=== PATIENT | female | born 1985 | race African-American/Black ===

== ENCOUNTER 2018-04-07 05:05 | Inpatient (IN) | payer BC ==
[2018-04-07] MEDS ORDERED: Butorphanol 1 MG/ML SDV IVPUSH PRN (08:07)
[2018-04-07] MEDS ORDERED: Lidocaine 1% 50 ML MDV INJECT PRN (08:07)
[2018-04-07] MEDS ORDERED: Sodium Chloride 0.9% 10 ML Syringe FLUSH PRN (08:07)
[2018-04-07] MEDS ORDERED: Nalbuphine 10 MG/1 ML Vial IVPUSH PRN (08:07)
[2018-04-07] MEDS ORDERED: Misoprostol 200 MCG Tab PO PRN (08:07)
[2018-04-07] MEDS ORDERED: Methylergonovine 0.2 MG/1 ML Amp IM PRN (08:07)
[2018-04-07] MEDS ORDERED: Tranexamic Acid 1,000 MG in Sodium Chloride 0.9% 100 ML IV PRN (08:07)
[2018-04-07] MEDS ORDERED: Sodium Chloride 0.9% 2.5 ML Syringe FLUSH PRN (08:07)
[2018-04-07] MEDS ORDERED: Carboprost Tromethamine 250 MCG/1 ML Amp IM PRN (08:07)
[2018-04-07] MEDS ORDERED: Ampicillin 2 GM in Sodium Chloride 0.9% 100 ML IV ONE (08:07)
[2018-04-07] MEDS ORDERED: Water For Irrigation,Sterile 1,000 ML Container IRR PRN (08:07)
[2018-04-07] MEDS ORDERED: Oxytocin/0.9 % Sodium Chloride 30 UNIT/500 ML BAG IV SCH ×2 (08:15→10:30)
[2018-04-07] MEDS: Lactated Ringers 1,000 ML IV SCH ×3 (08:50→16:23)
[2018-04-07] MEDS ORDERED: Terbutaline 1 MG/ML SDV SUBCUT PRN (10:24)
--- NOTE | 2018-04-07 11:14 | PCM.SN ---
- Free Text/Narrative Note: Patient very concerned about epidural. She states that her last pregnancies progressed very fast, and just "mentally worked through it". She describes this as different, meaning that it is progressing slower than the others. We discussed in great detail, the risks of the epidural, and the procedure. She is aware that a needle will be placed in her back and that the needle will be removed, and the catheter will remain. She seemed more receptive to the procedure once she realized that only an epidural catheter will remain in her back. I discussed potential challenges with epidural placement like scoliosis, and inability to remain still. She notes that she does not have scoliosis.
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
[2018-04-07] MEDS ORDERED: Lidocaine HCl/EPINEPHrine 5 ML IJ ONE (11:46)
[2018-04-07] MEDS: Ampicillin 1 GM in Sodium Chloride 0.9% 50 ML IV SCH ×2 (12:55→17:25)
[2018-04-07] MEDS ORDERED: Acetaminophen 500 MG Tab PO ONE (17:19)
[2018-04-07] MEDS ORDERED: Acetaminophen 500 MG Tab ONE (17:22)
[2018-04-07] MEDS ORDERED: Lanolin 100% Cream 7 GM Tube TOP PRN (19:15)
[2018-04-07] MEDS ORDERED: Docusate Sodium 100 MG Cap PO PRN (19:15)
[2018-04-07] MEDS ORDERED: Acetaminophen 500 MG Tab PO PRN ×2 (19:15)
[2018-04-07] MEDS ORDERED: Benzocaine/Menthol 20%-0.5% Spray 78 GM Cannister TOP PRN (19:15)
[2018-04-07] MEDS ORDERED: Aluminum Hydroxide/Magnesium Hydroxide/Simethicone Susp 30 ML Cup PO PRN (19:15)
[2018-04-07] MEDS ORDERED: oxyCODONE 5 MG Tab PO PRN (19:15)
[2018-04-07] MEDS ORDERED: Ibuprofen 800 MG Tab PO PRN (19:15)
[2018-04-07] MEDS ORDERED: Witch Hazel Medicated Pads 40/Jar TOP PRN (19:15)
[2018-04-07] MEDS ORDERED: Ondansetron 4 MG/2 ML SDV IVPUSH PRN (19:15)
[2018-04-07] MEDS ORDERED: Ibuprofen 400 MG Tab PO PRN (19:15)
[2018-04-07] MEDS ORDERED: Bisacodyl 10 MG Supp RECTAL PRN (19:15)
--- NOTE | 2018-04-07 19:23 | PCM.OPNOTE ---
- General Post-Op/Procedure Note Date of Surgery/Procedure: 04/07/18 Operative Procedure(s): /IP Findings: Viable male APGARs 9, 9 weight 2720 gm. Spontaneous delivery intact placenta with 3V cord Pre Op Diagnosis: 38 week IUP. Preeclampsia. GBBS + Post-Op Diagnosis: Same Anesthesia Technique: Epidural Primary Surgeon: Kadi Scott EBL in mLs: 300 Complications: None known Condition: Stable Free Text/Narrative:: Dictation [id number]
--- NOTE | 2018-04-07 20:06 | OR ---
SURGEON: Kadi Scott M.D. DATE OF PROCEDURE: 04/07/2018 PREOPERATIVE DIAGNOSES: 1. 38 weeks' intrauterine . 2. Preeclampsia. 3. Group B strep positive. POSTOPERATIVE DIAGNOSES: 1. 38 weeks' intrauterine . 2. Preeclampsia. 3. Group B strep positive. PROCEDURE: Spontaneous vaginal delivery. Intact perineum. ANESTHESIA: Epidural. ESTIMATED BLOOD LOSS: 300 mL. COMPLICATIONS: None. FINDINGS: Viable male. scores were 9 at 1 minute and 9 at 5 minutes. Weight is 2720 g. Spontaneous delivery, intact placenta, 3-vessel cord. DISPOSITION: to nursery, mom to magnesium recovery, stable. PROCEDURE IN DETAIL: This is a 33-year-old primigravida, at 38 weeks' gestational age who presents with severe preeclampsia, was admitted to Labor and Delivery and induced while on magnesium prophylaxis. The patient was managed by Dr. Ruffin and Dr. Montejo. I assumed care at approximately 5:00 p.m., on evening of 04/07/2018. At that time, the patient was found to be 9 cm. Clear fluid had been noted. heart tones are in the 140s with minimal variability, occasional deceleration. The patient progressed to complete +2 by 6:30 p.m., began pushing efforts by 7:00 p.m. She was at +3 station, was called for delivery. Upon my arrival, the patient was placed in modified dorsal lithotomy position, was prepped and draped in usual aseptic manner. Continued with pushing efforts, pushed readily and with next few contractions, able to deliver infant's head atraumatically and spontaneously, followed by anterior shoulder, posterior shoulder, and remainder of body without difficulty. The infant's oropharynx and nares bulb suctioned. Cord was clamped x2 and cut. was vigorous and crying. was handed off to his mother with attending nursing staff side. Cord arterial, cord venous, cord blood sampling was obtained. Light pressure was applied. The placenta was delivered spontaneously intact. Vigorous fundal uterine massage was then applied while 30 units of Pitocin was delivered in 500 mL of IV fluid. Upon inspection of cervix, vaginal sidewalls, and perineum, these were found to be intact. Uterus remained firm. Hemostasis evident. Sponge count was correct. The patient remained in LDRP and magnesium prophylaxis. Infant to nursery. SOLBSAR / MODL /[id number]
--- NOTE | 2018-04-07 20:14 | PCM.OPNOTE ---
- General Post-Op/Procedure Note Date of Surgery/Procedure: 04/07/18 Operative Procedure(s): /IP Findings: Viable male APGARs 8, 9 weight pending. Spontaneous delivery intact placenta with 3V cord Pre Op Diagnosis: 39/4 week IUP. Induction for abnormal heart tones Post-Op Diagnosis: Same Anesthesia Technique: Epidural Primary Surgeon: Kadi Scott EBL in mLs: 300 Complications: none known Condition: Stable Free Text/Narrative:: Dictation [id number]
--- NOTE | 2018-04-08 03:03 | OR ---
SURGEON: Kadi Scott M.D. DATE OF PROCEDURE: PREOPERTIVE DIAGNOSES: 1. A 39- and 4-week intrauterine . 2. Abnormal heart tones. POSTOPERATIVE DIAGNOSES: 1. A 39- and 4-week intrauterine . 2. Abnormal heart tones. PROCEDURE: Spontaneous vaginal delivery, intact perineum. ESTIMATED BLOOD LOSS: 300 mL. ANESTHESIA: Epidural. FINDINGS: Term male, scores eight at 1 minute, nine at 5 minutes. Weight is pending. Spontaneous delivery, intact placenta, 3-vessel cord. COMPLICATIONS: None. DISPOSITION: Infant to nursery, mom in LDRP, stable. PROCEDURE IN DETAIL: Isela is a 33-year-old G4, P3 at 39 and 4 weeks gestational age, who presents this morning with irregular contractions, but during observation was noted to have some intermittent variable deceleration with late component. Therefore, given these findings, she was admitted. Routine labs were drawn, IV hydration was initiated. She was repositioned with oxygen supplementation. The heart tones stabilized in the 140s with minimal variability. She was found to be 2-3 cm, 50% effaced, -3 station. The patient was initiated on Pitocin, contraction became more regular, became increasingly uncomfortable and underwent regional anesthesia in the form of epidural. She had spontaneous rupture of membranes with clear fluid. Shortly after 2:00 p.m., she was found to be 6-7 cm, 80% effaced, and a -2 station. She continued to progress through the afternoon hours and shortly before 5:00 p.m., she had a slightly elevated temperature of 100.8 and baseline heart tones were at 160s, 170s. She had intermittent variables prior to this. With the tachycardia, the patient underwent IV fluid bolus and received 1 g of Tylenol, was repositioned with oxygen supplementation. At that time, the patient was found to be 8 cm, within half hour progressed to 9 cm and then to 9.5 cm, was able to continue to reposition her side to side with oxygen supplementation, and for the most part, heart tones remained in the 150s to 160s. However, there were variables noted with the contractions. Pitocin continued at 10 milliunits per minute. With these efforts, the patient was able to progress to complete, began pushing efforts, pushed readily to a +3 station. The patient was placed in modified dorsal lithotomy position, was prepped and draped in the usual aseptic manner. Continued with pushing efforts, with the next two contractions, able to deliver infant's head atraumatically, spontaneously, followed by anterior shoulder, posterior shoulder, and remainder of the body. The 's oropharynx and nares bulb suctioned. Cord was clamped x2. Infant was crying and vigorous, handed off to his mother with attending nursing staff side. Cord arterial, cord venous, cord blood samples obtained after clamping the cord x2 and cutting it. Light pressure was applied while the placenta was delivered spontaneously intact. Vigorous fundal uterine massage was then applied while 30 units of Pitocin delivered in 500 mL of IV fluid. Upon inspection of cervix, vaginal sidewalls, and perineum, these were found to be intact. Uterus remained firm. Hemostasis evident. Sponge and instrument counts were correct. The patient will remain in LDRP, infant to nursery. MICHAEL / MELE /[id number]
--- NOTE | 2018-04-08 07:33 | PCM48HPAN ---
Post Anesthesia Note - EVALUATION WITHIN 48HRS OF ANESTHETIC Vital Signs in Normal Range: Yes Patient Participated in Evaluation: Yes Respiratory Function Stable: Yes Airway Patent: Yes Cardiovascular Function Stable: Yes Hydration Status Stable: Yes Pain Control Satisfactory: Yes Nausea and Vomiting Control Satisfactory: Yes Mental Status Recovered: Yes Resp Rate: 17 Temperature: 37.9 C
--- NOTE | 2018-04-08 17:59 | PCM.PNPP ---
- General Info Date of Service: 04/08/18 Functional Status: Reports: Pain Controlled, Tolerating Diet, Ambulating, Urinating - Review of Systems General: Reports: No Symptoms HEENT: Reports: No Symptoms Pulmonary: Reports: No Symptoms Cardiovascular: Reports: No Symptoms Gastrointestinal: Reports: No Symptoms Genitourinary: Reports: No Symptoms Musculoskeletal: Reports: No Symptoms Skin: Reports: No Symptoms Neurological: Reports: No Symptoms Psychiatric: Reports: No Symptoms - General Info Date of Service: 04/08/18 - Patient Data Vital Signs - Most Recent: Last Vital Signs Temp 36.4 C 04/08/18 08:00 Pulse 108 H 04/08/18 08:00 Resp 16 04/08/18 08:00 BP 114/61 04/08/18 08:00 Pulse Ox 95 04/08/18 08:00 Weight - Most Recent: 97.976 kg Lab Results - Last 24 Hours: Laboratory Results - last 24 hr 04/07/18 04/07/18 04/08/18 Range/Units 19:56 19:56 06:00 Hgb 10.7 L (12.0-16.0) g/dL Hct 33.4 L (36.0-46.0) % Cord ABG pH 7.299 (7.18-7.38) Cord ABG Base Excess -7 (-10--2) Cord VBG pH 7.290 (7.25-7.45) Cord VBG Base Excess -7 (-10--2) Med Orders - Current: Current Medications Acetaminophen (Tylenol Extra Strength) 500 mg PO Q4H PRN PRN Reason: Pain Acetaminophen (Tylenol Extra Strength) 1,000 mg PO Q4H PRN PRN Reason: Pain Al Hydroxide/Mg Hydroxide (Mag-Al Plus) 30 ml PO Q8H PRN PRN Reason: Heartburn Benzocaine/Menthol (Dermoplast Pain Relief 20%-0.5% [place]) 78 gm TOP ASDIRECTED PRN PRN Reason: Perineal Comfort Measure Bisacodyl (Dulcolax) 10 mg RECTAL ONETIME PRN PRN Reason: Constipation Carboprost Tromethamine (Hemabate Ds) 250 mcg IM ASDIRECTED PRN PRN Reason: Post Hemorrhage Docusate Sodium (Colace) 100 mg PO BID PRN PRN Reason: Constipation Emollient Ointment (Lansinoh Hpa) 0 gm TOP ASDIRECTED PRN PRN Reason: Sore Nipples Tranexamic Acid 1,000 mg/ (Sodium Chloride) 110 mls @ 660 mls/hr IV ONETIME PRN PRN Reason: Bleeding Lactated Ringer's (Ringers, Lactated) 1,000 mls @ 150 mls/hr IV ASDIRECTED PAMELA Last Admin: 04/07/18 16:23 Dose: 150 mls/hr Oxytocin/Sodium Chloride (Oxytocin 30 Unit/500 Ml-Ns) 30 unit in 500 mls @ 999 mls/hr IV TITRATE PAMELA Oxytocin/Sodium Chloride (Oxytocin 30 Unit/500 Ml-Ns) 30 unit in 500 mls @ 2 mls/hr IV TITRATE PAMELA; Protocol Last Titration: 04/07/18 19:56 Dose: 999 munits/min, 999 mls/hr Ibuprofen (Motrin) 400 mg PO Q4H PRN PRN Reason: Pain Ibuprofen (Motrin) 800 mg PO Q6H PRN PRN Reason: Pain Methylergonovine Maleate (Methergine) 0.2 mg IM ASDIRECTED PRN PRN Reason: Post Hemorrhage Nalbuphine HCl (Nubain) 10 mg IVPUSH Q1H PRN PRN Reason: Pain (severe 7-10) Ondansetron HCl (Zofran) 4 mg IVPUSH Q6H PRN PRN Reason: Nausea/Vomiting Oxycodone HCl (Oxycodone) 5 mg PO Q2H PRN PRN Reason: Pain Sodium Chloride (Saline Flush) 10 ml FLUSH ASDIRECTED PRN PRN Reason: Keep Vein Open Sodium Chloride (Saline Flush) 2.5 ml FLUSH ASDIRECTED PRN PRN Reason: Keep Vein Open Sterile Water (Sterile Water For Irrigation) 1,000 ml IRR ASDIRECTED PRN PRN Reason: delivery Witch [place] (Tucks) 1 pad TOP ASDIRECTED PRN PRN Reason: comfort care Discontinued Medications Acetaminophen (Tylenol Extra Strength) 1,000 mg PO ONETIME ONE Stop: 04/07/18 17:20 Last Admin: 04/07/18 17:30 Dose: 1,000 mg Acetaminophen (Tylenol Extra Strength) Confirm Administered Dose 1,000 mg .ROUTE .STK-MED ONE Stop: 04/07/18 17:23 Last Admin: 04/08/18 01:03 Dose: Not Given Butorphanol Tartrate (Stadol) 1 mg IVPUSH Q1H PRN PRN Reason: Pain Ampicillin Sodium 2 gm/ Sodium (Chloride) 100 mls @ 200 mls/hr IV ONETIME ONE Stop: 04/07/18 08:36 Last Admin: 04/07/18 09:05 Dose: 200 mls/hr Ampicillin Sodium 1 gm/ Sodium (Chloride) 50 mls @ 100 mls/hr IV Q4H PAMELA Last Admin: 04/07/18 17:25 Dose: 100 mls/hr Fentanyl/Bupivacaine HCl (Spvmhdbf-Qwthn-Fe 2 Mcg/Ml-0.125%) Confirm Administered Dose 100 mls @ as directed .ROUTE .STK-MED ONE Stop: 04/07/18 11:47 Last Admin: 04/08/18 01:03 Dose: Not Given Fentanyl/Bupivacaine HCl (Xbunuvuw-Onlju-Yd 2 Mcg/Ml-0.125%) Confirm Administered Dose 100 mls @ as directed .ROUTE .STK-MED ONE Stop: 04/07/18 17:19 Last Admin: 04/08/18 01:03 Dose: Not Given Lidocaine HCl (Xylocaine 1%) 50 ml INJECT ONETIME PRN PRN Reason: Laceration repair Lidocaine/Epinephrine (Lidocaine 1.5%-Epi 1:200,000) Confirm Administered Dose 5 ml IJ .STK-MED ONE Stop: 04/07/18 11:47 Last Admin: 04/08/18 01:03 Dose: Not Given Misoprostol (Cytotec) 200 mcg PO ONETIME PRN PRN Reason: Post Hemorrhage Terbutaline Sulfate (Brethine) 0.25 mg SUBCUT ASDIRECTED PRN PRN Reason: Tacysystole - Infant Interaction Support Person: Friend - Recovery Exam Fundal Tone: Firm Fundal Level: 1 Fingerbreadths Below Umbilicus Fundal Placement: Midline Lochia Amount: Scant Lochia Color: Rubra/Red Perineum Description: Intact, Minimal Bruising/Swelling Episiotomy/Laceration: None Bladder Status: Voiding Urinary Elimination: Voided - Exam General: Alert HEENT: Pupils Equal Neck: Supple Lungs: Clear to Auscultation Cardiovascular: Regular Rate, Regular Rhythm GI/Abdominal Exam: Normal Bowel Sounds Extremities: Normal Inspection Neurological: No New Focal Deficit - Problem List & Annotations (1) Vaginal delivery SNOMED Code(s): 913189062 Code(s): O80 - ENCOUNTER FOR FULL-TERM UNCOMPLICATED DELIVERY Status: Acute Current Visit: Yes - Problem List Review Problem List Initiated/Reviewed/Updated: Yes - Assessment Assessment:: 33 yo P4 s/p stable , , normal lochia - Plan Plan:: Discharge home today
== END 2018-04-08 22:50 | disposition home or self-care (01) | DRG 560 ==
LOC: MW.OBCHECK 05:05 → MW.OB 05:07 → MW.OBCHECK 08:07 → MW.OB 08:07 → OBSVTOIN 19:55
PROVIDERS: ADMIT Obstetrics & Gynecology; ATTEND Obstetrics & Gynecology
PROC: 10E0XZZ Delivery of Products of Conception, External Approach (ICD-10-PCS; principal; 2018-04-07)
PROC: 10H07YZ Insertion of Other Device into Products of Conception, Via Natural or Artificial Opening (ICD-10-PCS; principal; 2018-04-07)
PROC: 6A550ZT Pheresis of Cord Blood Stem Cells, Single (ICD-10-PCS; principal; 2018-04-07)
PROC: 00HU33Z Insertion of Infusion Device into Spinal Canal, Percutaneous Approach (ICD-10-PCS; 2018-04-07)
PROC: 3E0R3BZ Introduction of Anesthetic Agent into Spinal Canal, Percutaneous Approach (ICD-10-PCS; 2018-04-07)
DX: O99.824 Streptococcus B carrier state complicating childbirth (principal); O99.344 Other mental disorders complicating childbirth; F33.9 Major depressive disorder, recurrent, unspecified; O99.214 Obesity complicating childbirth; E66.9 Obesity, unspecified; Z3A.39 39 weeks gestation of pregnancy; Z37.0 Single live birth; O99.02 Anemia complicating childbirth; D64.9 Anemia, unspecified; O99.62 Diseases of the digestive system complicating childbirth; K21.9 Gastro-esophageal reflux disease without esophagitis; O76 Abnormality in fetal heart rate and rhythm complicating labor and delivery; Z79.899 Other long term (current) drug therapy
CPT/HCPCS: 36415; 51702; 59025; 59409; 81003; 82803; 85014; 85018; 85027; 86850; 86900; 86901; A9270-GY; J0290; J2590; J7030; J7050; J7120

== ENCOUNTER 2019-02-21 16:24 | Emergency (ER) | payer BC ==
--- NOTE | 2019-02-21 17:54 | EDM.PDOC ---
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 Denies pain, discharge, or further symptoms. ROS with no recent constitutional symptoms. Exam HR 96, RR 16, BP 135/82, T 36.4C, SaO2 100% on room air. Gen: Pleasant, nontoxic-appearing, resting comfortably. HEENT: NC, AT, PEERL, EOMI. Resp: Unlabored respirations with a normal work of breathing. Card: Extremities warm and well perfused. GI: Non-distended. : no suprapubic tenderness to palpation. MSK: No visible deformities, strength and tone without visually appreciable deficit. Neuro: alert and oriented 3, no facial asymmetry, vision and hearing WNL. Heme/Lymph: Deferred Skin: Normal color with no visible lesions (other than noted above). Psych: Mood and affect appropriate. MDM Previous chart, nursing note, and vitals reviewed. A: 33-year-old female 10 months with an IUD presents requesting repeat testing after having to positive urine test at home, patient experienced responding approximately 10 days ago, prior to that her last period was as one month ago. DDx & Evaluation: patient with positive urine test, and the absence of further symptoms no further testing is presently warranted. 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 Return to care precautions provided. Impression: positive test. - Related Data Allergies Allergy/AdvReac Type Severity Reaction Status Date / Time No Known Allergies Allergy Verified 02/21/19 17:10 Home Meds: Home Meds . 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 Endocrine/Metabolic History: Reports: Obesity/BMI 30+ Hematologic History: Reports: None Immunologic History: Reports: None Oncologic (Cancer) History: Reports: None Dermatologic History: Reports: None - Infectious Disease History Infectious Disease History: Reports: None - Past Surgical History GI Surgical History: Reports: None Endocrine Surgical History: Reports: None Social & Family History - Family History OBGYN: Reports: Oncologic: Reports: None - Tobacco Use Smoking Status *Q: Never Smoker - Caffeine Use Caffeine Use: Reports: None Other Caffeine Use: a cup occasionally - Recreational Drug Use Recreational Drug Use: No ED ROS GENERAL - Review of Systems Review Of Systems: See Below ED EXAM, GENERAL - Physical Exam Exam: See Below Course - Vital Signs Last Recorded V/S: Last Vital Signs Temp 36.7 C 02/21/19 17:41 Pulse 97 02/21/19 17:41 Resp 16 02/21/19 17:41 BP 134/93 H 02/21/19 17:41 Pulse Ox 99 02/21/19 17:41 - Orders/Labs/Meds Labs: Laboratory Tests 02/21/19 02/21/19 Range/Units 16:54 16:54 Urine HCG, Qual POSITIVE (NEGATIVE) Urine Opiates Screen NEGATIVE (NEGATIVE) Ur Oxycodone Screen NEGATIVE (NEGATIVE) Urine Methadone Screen NEGATIVE (NEGATIVE) Ur Barbiturates Screen NEGATIVE (NEGATIVE) Ur Phencyclidine Scrn NEGATIVE (NEGATIVE) Ur Amphetamine Screen NEGATIVE (NEGATIVE) U Methamphetamines Scrn NEGATIVE (NEGATIVE) U Benzodiazepines Scrn NEGATIVE (NEGATIVE) U Cocaine Metab Screen NEGATIVE (NEGATIVE) U Marijuana (THC) Screen NEGATIVE (NEGATIVE) Departure - Departure Time of Disposition: 17:53 Disposition: Home, Self-Care 01 Clinical Impression: - Discharge Information Referrals: Swetha Olivares MD [Primary Care Provider] - Additional Instructions: You were in seen in the [facility] Emergency Department for evaluation of possible , you were found to be . Please follow-up on Friday by phone with an sheep farmer. Please contact any one of the 3 clinics listed below if you need to establish care. Please read and follow all of the instructions below. Please follow up with your primary care physician as needed. When calling for follow-up care, please make the office aware that this follow-up is from your recent emergency room visit. If for any reason you are refused follow-up, please contact the [facility] Emergency Department at and asked to speak to the emergency department charge nurse. Your care today was limited to identifying and treating emergent medical problems only. Many people have subtle differences in their test results that require follow up with their outpatient physician(s) to correctly determine if this represents a normal variation or concerning abnormality with respect to your specific health. The care given to you today was limited to identifying and treating emergent medical problems - you need to request a copy of all of your medical records from today's visit and follow up with your outpatient physician(s) to review both today's visit and your overall health. If you have any new symptoms or if you are at all concerned about your health please return immediately to the emergency department. Prescriptions: If you are uninsured or have financial difficulties with filling your prescription(s), you may consider using a free pharmacy discount service such as [employer] ([employer]) or [employer] ([employer]). These services allow you to search for a medication on your phone (or computer) and obtain a coupon that usually has a significant discount from the list jerez at a pharmacy. Your physician as well as [facility] does not have a financial relationship with either of these services. You may also wish to speak with your physician to determine if lower cost prescriptions are possible. Obtaining primary care: 1. [facility] provides pediatrics (children), family medicine (children, adults, and some obstetrical care), and internal medicine (adults). Further specialty care is also available. Same day appointments are available. They may be contacted at [phone] and are open Friday through Friday 8 AM to [address] [facility] are located at [facility], [address] [place] [address]. 2. [facility] offers family medicine, internal medicine, [facility], and further specialty care. [facility] may be contacted at [phone]. [facility] is located at [address] [place], [address]. 3. [facility], , Friday through Friday 8 AM to 5 PM. [address] [place] [address]. 4. If you have health insurance, please also contact your insurer for a list of accepting providers under your policy, you may contact these providers for further health care. Occupational health: Work related injuries may consider following up with [facility], . Occupational health services are located at [address] [place] [address] and are open Friday through Friday from 7: 30 am to 5:00 pm. Eyecare: If you have an eye injury you should follow up with your hand mica plate layer or with [facility], at [phone] or [phone] , they are located at [address] [place] [address]. Sepsis Event Note - Evaluation Sepsis Screening Result: No Definite Risk - Focused Exam Vital Signs: Vital Signs Temp Pulse Resp BP Pulse Ox 02/21/19 17:41 36.7 C 97 16 134/93 H 99 02/21/19 17:11 36.4 C 96 16 135/82 100 Date Exam was Performed: 02/21/19 Time Exam was Performed: 17:53
== END 2019-02-21 17:57 | disposition home or self-care (01) ==
LOC: MW.ED 16:24
DX: Z32.01 Encounter for pregnancy test, result positive (principal); O99.211 Obesity complicating pregnancy, first trimester; E66.9 Obesity, unspecified
CPT/HCPCS: 80305-QW; 81025; 99282

== ENCOUNTER 2019-03-02 07:11 | Day surgery (SDC) | payer BC ==
[2019-03-02] MEDS ORDERED: Acetaminophen 325 MG Tab PO ONE (07:36)
--- NOTE | 2019-03-02 07:40 | EDM.PDOC ---
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 Patient had IUD removed yesterday in clinic after discovering she was on February 21. Patient was instructed to return to the emergency department if she develops severe cramping. Patient started developing severe cramping this morning which did not radiate and was constant. Patient denies any associated fevers, chills, nausea, vomiting, vaginal bleeding. In addition to that documented in the HPI above, the additional ROS was obtained : Constitutional: Denies fevers or chills Eyes: Denies vision changes ENMT: Denies sore throat CV: Denies chest pain Resp: Denies SOB GI: Denies vomiting or diarrhea : Denies painful urination MSK: Denies recent trauma Skin: Denies new rashes Neuro: Denies new numbness or tingling or weakness Endocrine: Denies unexpected weight loss Heme: Denies bleeding disorders I have reviewed the triage vital signs Const: Well nourished, well developed, appears stated age Eyes: PERRL, no conjunctival injection HENT: NCAT, Neck supple without meningismus CV: RRR, Warm, well-perfused extremities RESP: CTAB, Unlabored respiratory effort GI: Left lower abdominal tenderness to palpation soft abdomen, non-distended, no masses MSK: No gross deformities appreciated Skin: Warm, dry. No rashes Neuro: Alert, physical director II-XII grossly intact. Sensation and motor function of extremities grossly intact. Psych: Appropriate mood and affect Assessment and plan: Patient is 33-year-old female with high suspicion of ectopic . Patient evaluated by TRUCK LEASING MANAGER who agreed to take the patient to the operating room. Patient's pain is under control and patient is hemodynamically stable at this time. Further care will be provided by TRUCK LEASING MANAGER. abd Pain Score (Numeric/FACES): 9 - Related Data Allergies Allergy/AdvReac Type Severity Reaction Status Date / Time latex Allergy Itching Verified 03/02/19 10:08 Home Meds: Home Meds . 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 Endocrine/Metabolic History: Reports: Obesity/BMI 30+ Hematologic History: Reports: None Immunologic History: Reports: None Oncologic (Cancer) History: Reports: None Dermatologic History: Reports: None - Infectious Disease History Infectious Disease History: Reports: None - Past Surgical History GI Surgical History: Reports: None Endocrine Surgical History: Reports: None Social & Family History - Family History Family Medical History: Noncontributory OBGYN: Reports: Oncologic: Reports: None - Tobacco Use Smoking Status *Q: Never Smoker - Caffeine Use Caffeine Use: Reports: None Other Caffeine Use: a cup occasionally - Recreational Drug Use Recreational Drug Use: No ED ROS GENERAL - Review of Systems Review Of Systems: See Below ED EXAM - Physical Exam Exam: See Below Course - Vital Signs Last Recorded V/S: Last Vital Signs Temp 36 C 03/02/19 14:45 Pulse 72 03/02/19 15:45 Resp 14 03/02/19 15:45 BP 109/67 03/02/19 15:45 Pulse Ox 100 03/02/19 15:45 - Orders/Labs/Meds Orders: Active Orders 24 hr Category Date Time Status Admission Status [Patient Status] [ADT] Stat ADT 03/02/19 09:39 Active Blood Glucose Check, Bedside [RC] PRN Care 03/02/19 13:28 Active Notify Provider Vital Signs [RC] ASDIRECTED Care 03/02/19 13:28 Active Oxygen Therapy [RC] PRN Care 03/02/19 13:28 Active RT Aerosol Therapy [RC] ASDIRECTED Care 03/02/19 13:28 Active RT Aerosol Therapy [RC] ASDIRECTED Care 03/02/19 13:28 Active RT Aerosol Therapy [RC] ASDIRECTED Care 03/02/19 13:28 Active Ready for Discharge [RC] PER UNIT ROUTINE Care 03/02/19 15:16 Active Vital Signs [RC] Q5M Care 03/02/19 13:28 Active Labs: Laboratory Tests 03/02/19 03/02/19 03/02/19 Range/Units 05:48 05:48 07:23 WBC 5.80 (4.0-11.0) K/uL RBC 4.78 (4.30-5.90) M/uL Hgb 12.1 (12.0-16.0) g/dL Hct 37.9 (36.0-46.0) % MCV 79.3 L (80.0-98.0) fL MCH 25.3 L (27.0-32.0) pg MCHC 31.9 (31.0-37.0) g/dL RDW Std Deviation 47.2 (28.0-62.0) fl RDW Coeff of Kelsy 16 H (11.0-15.0) % Plt Count 264 (150-400) K/uL MPV 9.60 (7.40-12.00) fL Neut % (Auto) 53.4 (48.0-80.0) % Lymph % (Auto) 36.9 (16.0-40.0) % [place] % (Auto) 7.8 (0.0-15.0) % Eos % (Auto) 1.4 (0.0-7.0) % Baso % (Auto) 0.5 (0.0-1.5) % Neut # (Auto) 3.1 (1.4-5.7) K/uL Lymph # (Auto) 2.1 (0.6-2.4) K/uL [place] # (Auto) 0.5 (0.0-0.8) K/uL Eos # (Auto) 0.1 (0.0-0.7) K/uL Baso # (Auto) 0.0 (0.0-0.1) K/uL Nucleated RBC % 0.0 /100WBC Nucleated RBCs # 0 K/uL Sodium 138 (136-145) mmol/L Potassium 4.4 (3.5-5.1) mmol/L Chloride 102 (98-107) mmol/L Carbon Dioxide 29.4 (21.0-32.0) mmol/L BUN 11 (7.0-18.0) mg/dL Creatinine 0.7 (0.6-1.0) mg/dL Est Cr Clr Drug Dosing 91.25 mL/min Estimated GFR (MDRD) > 60.0 ml/min Glucose 96 (74-106) mg/dL Calcium 9.5 (8.5-10.1) mg/dL HCG, Quant 05586.0 mIU/mL Urine Color YELLOW Urine Appearance CLEAR Urine pH 6.0 (5.0-8.0) Ur Specific [place] 1.020 (1.001-1.035) Urine Protein NEGATIVE (NEGATIVE) mg/dL Urine Glucose (UA) NEGATIVE (NEGATIVE) mg/dL Urine Ketones NEGATIVE (NEGATIVE) mg/dL Urine Occult Blood TRACE-INTACT H (NEGATIVE) Urine Nitrite NEGATIVE (NEGATIVE) Urine Bilirubin NEGATIVE (NEGATIVE) Urine Urobilinogen 0.2 (<2.0) EU/dL Ur Leukocyte Esterase NEGATIVE (NEGATIVE) Urine RBC 0-1 (0-2/HPF) Urine WBC 0-1 (0-5/HPF) Ur Epithelial Cells FEW (NONE-FEW) Urine Bacteria RARE (NEGATIVE) Blood Type Antibody Screen 03/02/19 Range/Units 08:53 WBC (4.0-11.0) K/uL RBC (4.30-5.90) M/uL Hgb (12.0-16.0) g/dL Hct (36.0-46.0) % MCV (80.0-98.0) fL MCH (27.0-32.0) pg MCHC (31.0-37.0) g/dL RDW Std Deviation (28.0-62.0) fl RDW Coeff of Kelsy (11.0-15.0) % Plt Count (150-400) K/uL MPV (7.40-12.00) fL Neut % (Auto) (48.0-80.0) % Lymph % (Auto) (16.0-40.0) % [place] % (Auto) (0.0-15.0) % Eos % (Auto) (0.0-7.0) % Baso % (Auto) (0.0-1.5) % Neut # (Auto) (1.4-5.7) K/uL Lymph # (Auto) (0.6-2.4) K/uL [place] # (Auto) (0.0-0.8) K/uL Eos # (Auto) (0.0-0.7) K/uL Baso # (Auto) (0.0-0.1) K/uL Nucleated RBC % /100WBC Nucleated RBCs # K/uL Sodium (136-145) mmol/L Potassium (3.5-5.1) mmol/L Chloride (98-107) mmol/L Carbon Dioxide (21.0-32.0) mmol/L BUN (7.0-18.0) mg/dL Creatinine (0.6-1.0) mg/dL Est Cr Clr Drug Dosing mL/min Estimated GFR (MDRD) ml/min Glucose (74-106) mg/dL Calcium (8.5-10.1) mg/dL HCG, Quant mIU/mL Urine Color Urine Appearance Urine pH (5.0-8.0) Ur Specific [place] (1.001-1.035) Urine Protein (NEGATIVE) mg/dL Urine Glucose (UA) (NEGATIVE) mg/dL Urine Ketones (NEGATIVE) mg/dL Urine Occult Blood (NEGATIVE) Urine Nitrite (NEGATIVE) Urine Bilirubin (NEGATIVE) Urine Urobilinogen (<2.0) EU/dL Ur Leukocyte Esterase (NEGATIVE) Urine RBC (0-2/HPF) Urine WBC (0-5/HPF) Ur Epithelial Cells (NONE-FEW) Urine Bacteria (NEGATIVE) Blood Type A POSITIVE Antibody Screen NEGATIVE Meds: Medications Discontinued Medications Generic Name Dose Route Start Last Admin Trade Name Freq PRN Reason Stop Dose Admin Acetaminophen 650 mg 03/02/19 07:36 03/02/19 07:44 Tylenol PO 03/02/19 07:37 650 mg NOW ONE Administration Albuterol 2.5 mg 03/02/19 13:28 Proventil Neb Soln NEB ONETIME PRN Wheezing Atropine Sulfate 0.5 mg 03/02/19 13:28 Atropine 0.1 Mg/Ml IVPUSH ASDIRECTED PRN Hypo-perfusion Atropine Sulfate 1 mg 03/02/19 13:28 Atropine 0.1 Mg/Ml IVPUSH ASDIRECTED PRN Hypo-Perfusion Dextrose/Water 50 ml 03/02/19 13:28 Dextrose 50% In Water IVPUSH ASDIRECTED PRN Hypoglycemia Ephedrine Sulfate Confirm 03/02/19 13:21 Ephedrine Sulfate Administered 03/02/19 13:22 Dose 50 mg .ROUTE .STK-MED ONE Epinephrine HCl 1 mg 03/02/19 13:28 Epinephrine 1:10,000 IVPUSH ASDIRECTED PRN ACLS Guidelines Fentanyl Confirm 03/02/19 12:09 Sublimaze Administered 03/02/19 12:10 Dose 250 mcg .ROUTE .STK-MED ONE Fentanyl 50 - 100 mcg 03/02/19 13:28 03/02/19 14:31 Sublimaze IVPUSH 50 mcg Q5M PRN Administration Pain Glycopyrrolate Confirm 03/02/19 12:09 Robinul Administered 03/02/19 12:10 Dose 0.4 mg .ROUTE .STK-MED ONE Glycopyrrolate Confirm 03/02/19 13:21 Robinul Administered 03/02/19 13:22 Dose 0.2 mg .ROUTE .STK-MED ONE Hydromorphone HCl Confirm 03/02/19 13:49 Dilaudid Administered 03/02/19 13:50 Dose 2 mg .ROUTE .STK-MED ONE Sodium Chloride Confirm 03/02/19 13:21 Normal Saline Administered 03/02/19 13:22 Dose 20 mls @ as directed .ROUTE .STK-MED ONE Labetalol HCl Confirm 03/02/19 12:54 Normodyne Administered 03/02/19 12:55 Dose 100 mg .ROUTE .STK-MED ONE Lidocaine Confirm 03/02/19 12:09 Xylocaine-Mpf 2% Administered 03/02/19 12:10 Dose 5 ml .ROUTE .STK-MED ONE Midazolam HCl Confirm 03/02/19 12:09 Versed 1 Mg/Ml Administered 03/02/19 12:10 Dose 2 mg .ROUTE .STK-MED ONE Naloxone HCl 0.1 mg 03/02/19 13:28 Narcan IVPUSH ASDIRECTED PRN Respiratory Depression Neostigmine Methylsulfate Confirm 03/02/19 12:09 Neostigmine Administered 03/02/19 12:10 Dose 5 mg .ROUTE .STK-MED ONE Octyl Cyanoacrylate Confirm 03/02/19 13:52 Dermabond Advance Administered 03/02/19 13:53 Dose 1 applic .ROUTE .STK-MED ONE Ondansetron HCl Confirm 03/02/19 12:09 Zofran Administered 03/02/19 12:10 Dose 4 mg .ROUTE .STK-MED ONE Propofol Confirm 03/02/19 12:09 Diprivan 20 Ml Administered 03/02/19 12:10 Dose 200 mg .ROUTE .STK-MED ONE Rocuronium [place] Confirm 03/02/19 12:10 Zemuron Administered 03/02/19 12:11 Dose 100 mg .ROUTE .STK-MED ONE Departure - Departure Time of Disposition: 13:00 Disposition: Still A Patient 30 Clinical Impression: Ectopic - Discharge Information Sepsis Event Note - Evaluation Sepsis Screening Result: No Definite Risk - Focused Exam Vital Signs: Vital Signs Temp Pulse Resp BP Pulse Ox 03/02/19 15:45 72 14 109/67 100 03/02/19 15:30 72 14 107/67 99 03/02/19 15:15 73 14 110/73 98 03/02/19 15:00 84 14 114/72 97 03/02/19 14:45 36 C 81 14 110/67 98 03/02/19 14:38 82 15 122/65 99 03/02/19 14:33 77 15 115/65 98 03/02/19 14:28 75 15 110/77 100 03/02/19 14:23 91 12 109/72 100 03/02/19 14:18 95 13 104/72 100 03/02/19 14:13 96 20 121/53 L 100 03/02/19 14:08 100 24 H 120/62 100 03/02/19 14:03 37 C 100 14 99/62 100 03/02/19 10:11 36.3 C 86 16 123/68 100 03/02/19 09:40 36.4 C 79 101/56 L 99 03/02/19 07:23 36.2 C 83 22 H 123/67 100 Date Exam was Performed: 03/02/19 Time Exam was Performed: 18:00 - My Orders Last 24 Hours: My Active Orders 03/02/19 09:39 Admission Status [Patient Status] [ADT] Stat - Assessment/Plan Last 24 Hours: My Active Orders 03/02/19 09:39 Admission Status [Patient Status] [ADT] Stat
[2019-03-02 08:20] LABS: BLOOD UREA NITROGEN,BUN 11 mg/dL (7.0-18.0); CARBON DIOXIDE,CO2 29.4 mmol/L (21.0-32.0); CHLORIDE,CL 102 mmol/L (98-107); GLUCOSE RANDOM 96 mg/dL (74-106); POTASSIUM,K 4.4 mmol/L (3.5-5.1); SODIUM,NA 138 mmol/L (136-145)
--- NOTE | 2019-03-02 08:35 | US ---
1st trimester obstetrical ultrasound: Multiple real-time images were obtained both transabdominally and transvaginally. Comparison: No previous study. Small amount of fluid is seen within the endometrial cavity but no intrauterine gestational sac is seen. Slightly complicated finding is seen within the left adnexa. This shows a surrounding solid area and central cystic area. This finding shows slight increased vascularity along its periphery. This finding measures around 3.7 cm in greatest dimension. This finding is highly suspicious for ectopic . Right ovary appears normal. Small amount of fluid is seen within the cul-de-sac Impression: 1. Findings felt to be highly suspicious for left-sided ectopic . 2. Small amount of fluid within the cul-de-sac. Difficult to exclude small amount of blood. 3. Small amount of fluid within the endometrial cavity. No intrauterine gestational sac is seen. Diagnostic code #5 This report was dictated in [place] Standard Time
--- NOTE | 2019-03-02 11:18 | PCM.PREANE ---
Preanesthetic Assessment - Anesthesia/Transfusion/Family Hx Anesthesia History: No Prior Anesthesia Family History of Anesthesia Reaction: No Transfusion History: No Prior Transfusion(s) - Review of Systems General: No Symptoms Pulmonary: No Symptoms Cardiovascular: No Symptoms Gastrointestinal: Abdominal Pain Neurological: No Symptoms Other: Reports: None - Physical Assessment NPO Status Date: 03/02/19 NPO Status Time: 06:00 (breakfast sandwitch) Vital Signs: Last Vital Signs Temp 97.3 F 03/02/19 10:11 Pulse 86 03/02/19 10:11 Resp 16 03/02/19 10:11 BP 123/68 03/02/19 10:11 Pulse Ox 100 03/02/19 10:11 Height: 5 ft 2 in Weight: 95.708 kg ASA Class: 2 Mental Status: Alert & Oriented x3 Airway Class: Mallampati = 1 Dentition: Reports: Normal Dentition ROM/Head Extension: Full Lungs: Clear to Auscultation, Normal Respiratory Effort Cardiovascular: Regular Rate, Regular Rhythm - Lab Values: Laboratory Last Values WBC 5.80 K/uL (4.0-11.0) 03/02/19 05:48 RBC 4.78 M/uL (4.30-5.90) 03/02/19 05:48 Hgb 12.1 g/dL (12.0-16.0) 03/02/19 05:48 Hct 37.9 % (36.0-46.0) 03/02/19 05:48 MCV 79.3 fL (80.0-98.0) L 03/02/19 05:48 MCH 25.3 pg (27.0-32.0) L 03/02/19 05:48 MCHC 31.9 g/dL (31.0-37.0) 03/02/19 05:48 RDW Std Deviation 47.2 fl (28.0-62.0) 03/02/19 05:48 RDW Coeff of Kelsy 16 % (11.0-15.0) H 03/02/19 05:48 Plt Count 264 K/uL (150-400) 03/02/19 05:48 MPV 9.60 fL (7.40-12.00) 03/02/19 05:48 Neut % (Auto) 53.4 % (48.0-80.0) 03/02/19 05:48 Lymph % (Auto) 36.9 % (16.0-40.0) 03/02/19 05:48 [place] % (Auto) 7.8 % (0.0-15.0) 03/02/19 05:48 Eos % (Auto) 1.4 % (0.0-7.0) 03/02/19 05:48 Baso % (Auto) 0.5 % (0.0-1.5) 03/02/19 05:48 Neut # (Auto) 3.1 K/uL (1.4-5.7) 03/02/19 05:48 Lymph # (Auto) 2.1 K/uL (0.6-2.4) 03/02/19 05:48 [place] # (Auto) 0.5 K/uL (0.0-0.8) 03/02/19 05:48 Eos # (Auto) 0.1 K/uL (0.0-0.7) 03/02/19 05:48 Baso # (Auto) 0.0 K/uL (0.0-0.1) 03/02/19 05:48 Nucleated RBC % 0.0 /100WBC 03/02/19 05:48 Nucleated RBCs # 0 K/uL 03/02/19 05:48 Sodium 138 mmol/L (136-145) 03/02/19 05:48 Potassium 4.4 mmol/L (3.5-5.1) 03/02/19 05:48 Chloride 102 mmol/L (98-107) 03/02/19 05:48 Carbon Dioxide 29.4 mmol/L (21.0-32.0) 03/02/19 05:48 BUN 11 mg/dL (7.0-18.0) 03/02/19 05:48 Creatinine 0.7 mg/dL (0.6-1.0) 03/02/19 05:48 Est Cr Clr Drug Dosing 91.25 mL/min 03/02/19 05:48 Estimated GFR (MDRD) > 60.0 ml/min 03/02/19 05:48 Glucose 96 mg/dL (74-106) 03/02/19 05:48 Calcium 9.5 mg/dL (8.5-10.1) 03/02/19 05:48 HCG, Quant 97758.0 mIU/mL 03/02/19 05:48 Urine Color YELLOW 03/02/19 07:23 Urine Appearance CLEAR 03/02/19 07:23 Urine pH 6.0 (5.0-8.0) 03/02/19 07:23 Ur Specific [place] 1.020 (1.001-1.035) 03/02/19 07:23 Urine Protein NEGATIVE mg/dL (NEGATIVE) 03/02/19 07:23 Urine Glucose (UA) NEGATIVE mg/dL (NEGATIVE) 03/02/19 07:23 Urine Ketones NEGATIVE mg/dL (NEGATIVE) 03/02/19 07:23 Urine Occult Blood TRACE-INTACT (NEGATIVE) H 03/02/19 07:23 Urine Nitrite NEGATIVE (NEGATIVE) 03/02/19 07:23 Urine Bilirubin NEGATIVE (NEGATIVE) 03/02/19 07:23 Urine Urobilinogen 0.2 EU/dL (<2.0) 03/02/19 07:23 Ur Leukocyte Esterase NEGATIVE (NEGATIVE) 03/02/19 07:23 Urine RBC 0-1 (0-2/HPF) 03/02/19 07:23 Urine WBC 0-1 (0-5/HPF) 03/02/19 07:23 Ur Epithelial Cells FEW (NONE-FEW) 03/02/19 07:23 Urine Bacteria RARE (NEGATIVE) 03/02/19 07:23 Blood Type A POSITIVE 03/02/19 08:53 Antibody Screen NEGATIVE 03/02/19 08:53 - Allergies Allergies/Adverse Reactions: Allergies Allergy/AdvReac Type Severity Reaction Status Date / Time latex Allergy Itching Verified 03/02/19 10:08 - Blood Blood Available: No - Anesthesia Plan Pre-Op Medication Ordered: None - Acknowledgements Anesthesia Type Planned: General Anesthesia Pt an Appropriate Candidate for the Planned Anesthesia: Yes Alternatives and Risks of Anesthesia Discussed w Pt/Guardian: Yes Pt/Guardian Understands and Agrees with Anesthesia Plan: Yes Additional Comments: PMH: gerd, bipolar disorder PreAnesthesia Questionnaire HEENT History: Reports: None Cardiovascular History: Reports: None Respiratory History: Reports: None Gastrointestinal History: Reports: Other (See Below) Other Gastrointestinal History: heartburn during Genitourinary History: Reports: None MULTINEEDLE SHIRRER History: Reports: Musculoskeletal History: Reports: None Neurological History: Reports: None Psychiatric History: Reports: Bipolar, Other (See Below) 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 [No Known Home Meds] 02/21/19 [History] - CURRENT (IN HOUSE) MEDS Current Meds: Current Medications Discontinued Medications Acetaminophen (Tylenol) 650 mg PO NOW ONE Stop: 03/02/19 07:37 Last Admin: 03/02/19 07:44 Dose: 650 mg
[2019-03-02] MEDS ORDERED: Glycopyrrolate 0.2 MG/ML SDV ONE ×2 (12:09→13:21)
[2019-03-02] MEDS ORDERED: Lidocaine 2% 5 ML SDV ONE (12:09)
[2019-03-02] MEDS ORDERED: Midazolam 1 MG/ML 2 ML SDV ONE (12:09)
[2019-03-02] MEDS ORDERED: Propofol 200 MG/20 ML SDV ONE (12:09)
[2019-03-02] MEDS ORDERED: Neostigmine Methylsulfate 1 MG/ML 5 ML Syringe ONE (12:09)
[2019-03-02] MEDS ORDERED: Ondansetron 4 MG/2 ML SDV ONE (12:09)
[2019-03-02] MEDS ORDERED: fentaNYL 250 MCG/5 ML SDV ONE (12:09)
[2019-03-02] MEDS ORDERED: Rocuronium 100 MG/10 ML Syringe ONE (12:10)
[2019-03-02] MEDS ORDERED: Labetalol 100 MG/20 ML MDV ONE (12:54)
[2019-03-02] MEDS ORDERED: Sodium Chloride 0.9% 20 ML ONE (13:21)
[2019-03-02] MEDS ORDERED: ePHEDrine 50 MG/ML SDV ONE (13:21)
[2019-03-02] MEDS ORDERED: 50% Dextrose in Water 50 ML Syringe IVPUSH PRN (13:28)
[2019-03-02] MEDS ORDERED: Atropine 0.1 MG/ML 10 ML Syringe IVPUSH PRN ×2 (13:28)
[2019-03-02] MEDS ORDERED: Naloxone 0.4 MG/ML Syringe IVPUSH PRN (13:28)
[2019-03-02] MEDS ORDERED: Albuterol 0.083% 2.5 MG/3 ML Neb Soln NEB PRN (13:28)
[2019-03-02] MEDS ORDERED: fentaNYL 100 MCG/2 ML SDV IVPUSH PRN (13:28)
[2019-03-02] MEDS ORDERED: EPINEPHrine 1:10,000 1 MG/10 ML Syringe IVPUSH PRN (13:28)
[2019-03-02] MEDS ORDERED: HYDROmorphone 2 MG/ML Syringe ONE (13:49)
[2019-03-02] MEDS ORDERED: Octyl 2-Cyanoacrylate 1 Tube ONE (13:52)
--- NOTE | 2019-03-02 15:06 | PCM.POSTAN ---
POST ANESTHESIA ASSESSMENT - MENTAL STATUS Mental Status: Alert, Oriented - VITAL SIGNS Vital Signs: Last Vital Signs Temp 98.6 F 03/02/19 14:03 Pulse 82 03/02/19 14:38 Resp 15 03/02/19 14:38 BP 122/65 03/02/19 14:38 Pulse Ox 99 03/02/19 14:38 - RESPIRATORY Respiratory Status: Respiratory Rate WNL, Airway Patent, O2 Saturation Stable - CARDIOVASCULAR CV Status: Pulse Rate WNL, Blood Pressure Stable - GASTROINTESTINAL GI Status: No Symptoms - POST OP HYDRATION Hydration Status: Adequate & Stable
--- NOTE | 2019-03-02 15:15 | PCM.OPNOTE ---
- General Post-Op/Procedure Note Date of Surgery/Procedure: 03/02/19 Operative Procedure(s): D&E, dignostic Laparoscopy, L. salpengectomy and pertonial levage. Pre Op Diagnosis: L.tubal . Post-Op Diagnosis: Same Anesthesia Technique: General ET Tube Primary Surgeon: All Elizabeth EBL in mLs: 250 Complications: None Condition: Stable Free Text/Narrative:: Intake & Output 03/02/19 03/02/19 03/02/19 06:59 14:59 22:59 Intake Total 1999 Balance 1999
--- NOTE | 2019-03-02 15:16 | PCM.DCSUM1 ---
Discharge Summary - Hospital Course Diagnosis: Stroke: No - Discharge Data Discharge Date: 03/02/19 Discharge Disposition: Home, Self-Care 01 Condition: Stable - Referral to Home Health Primary Care Physician: PCP None - Patient Summary/Data Operative Procedure(s) Performed: D&E, dignostic Laparoscopy, L. salpengectomy and pertonial levage. - Patient Instructions Diet: Usual Diet as Tolerated, Regular Diet as Tolerated Activity: As Tolerated, No Strenuous Activities Driving: Do Not Drive Showering/Bathing: May Shower Notify Provider of: Fever, Increased Pain, Swelling and Redness, Drainage, Nausea and/or Vomiting - Discharge Plan Home Medications: Home Meds . [No Known Home Meds] 02/21/19 [History] Forms: ED Department Discharge Referrals: PCP,None [Primary Care Provider] - - Discharge Summary/Plan Comment DC Time >30 min.: Yes - General Info Date of Service: 03/02/19 Functional Status: Reports: Pain Controlled - Review of Systems General: Reports: No Symptoms HEENT: Reports: No Symptoms Pulmonary: Reports: No Symptoms Cardiovascular: Reports: No Symptoms Gastrointestinal: Reports: No Symptoms Genitourinary: Reports: No Symptoms Musculoskeletal: Reports: No Symptoms Skin: Reports: No Symptoms Neurological: Reports: No Symptoms Psychiatric: Reports: No Symptoms - Patient Data Vitals - Most Recent: Last Vital Signs Temp 37 C 03/02/19 14:03 Pulse 82 03/02/19 14:38 Resp 15 03/02/19 14:38 BP 122/65 03/02/19 14:38 Pulse Ox 99 03/02/19 14:38 Weight - Most Recent: 95.708 kg I&O - Last 24 hours: Intake & Output 03/02/19 03/02/19 03/02/19 06:59 14:59 22:59 Intake Total 1999 Balance 1999 Lab Results - Last 24 hrs: Laboratory Results - last 24 hr 03/02/19 03/02/19 03/02/19 Range/Units 05:48 05:48 07:23 WBC 5.80 (4.0-11.0) K/uL RBC 4.78 (4.30-5.90) M/uL Hgb 12.1 (12.0-16.0) g/dL Hct 37.9 (36.0-46.0) % MCV 79.3 L (80.0-98.0) fL MCH 25.3 L (27.0-32.0) pg MCHC 31.9 (31.0-37.0) g/dL RDW Std Deviation 47.2 (28.0-62.0) fl RDW Coeff of Kelsy 16 H (11.0-15.0) % Plt Count 264 (150-400) K/uL MPV 9.60 (7.40-12.00) fL Neut % (Auto) 53.4 (48.0-80.0) % Lymph % (Auto) 36.9 (16.0-40.0) % [place] % (Auto) 7.8 (0.0-15.0) % Eos % (Auto) 1.4 (0.0-7.0) % Baso % (Auto) 0.5 (0.0-1.5) % Neut # (Auto) 3.1 (1.4-5.7) K/uL Lymph # (Auto) 2.1 (0.6-2.4) K/uL [place] # (Auto) 0.5 (0.0-0.8) K/uL Eos # (Auto) 0.1 (0.0-0.7) K/uL Baso # (Auto) 0.0 (0.0-0.1) K/uL Nucleated RBC % 0.0 /100WBC Nucleated RBCs # 0 K/uL Sodium 138 (136-145) mmol/L Potassium 4.4 (3.5-5.1) mmol/L Chloride 102 (98-107) mmol/L Carbon Dioxide 29.4 (21.0-32.0) mmol/L BUN 11 (7.0-18.0) mg/dL Creatinine 0.7 (0.6-1.0) mg/dL Est Cr Clr Drug Dosing 91.25 mL/min Estimated GFR (MDRD) > 60.0 ml/min Glucose 96 (74-106) mg/dL Calcium 9.5 (8.5-10.1) mg/dL HCG, Quant 64817.0 mIU/mL Urine Color YELLOW Urine Appearance CLEAR Urine pH 6.0 (5.0-8.0) Ur Specific [place] 1.020 (1.001-1.035) Urine Protein NEGATIVE (NEGATIVE) mg/dL Urine Glucose (UA) NEGATIVE (NEGATIVE) mg/dL Urine Ketones NEGATIVE (NEGATIVE) mg/dL Urine Occult Blood TRACE-INTACT H (NEGATIVE) Urine Nitrite NEGATIVE (NEGATIVE) Urine Bilirubin NEGATIVE (NEGATIVE) Urine Urobilinogen 0.2 (<2.0) EU/dL Ur Leukocyte Esterase NEGATIVE (NEGATIVE) Urine RBC 0-1 (0-2/HPF) Urine WBC 0-1 (0-5/HPF) Ur Epithelial Cells FEW (NONE-FEW) Urine Bacteria RARE (NEGATIVE) Blood Type Antibody Screen 03/02/19 Range/Units 08:53 WBC (4.0-11.0) K/uL RBC (4.30-5.90) M/uL Hgb (12.0-16.0) g/dL Hct (36.0-46.0) % MCV (80.0-98.0) fL MCH (27.0-32.0) pg MCHC (31.0-37.0) g/dL RDW Std Deviation (28.0-62.0) fl RDW Coeff of Kelsy (11.0-15.0) % Plt Count (150-400) K/uL MPV (7.40-12.00) fL Neut % (Auto) (48.0-80.0) % Lymph % (Auto) (16.0-40.0) % [place] % (Auto) (0.0-15.0) % Eos % (Auto) (0.0-7.0) % Baso % (Auto) (0.0-1.5) % Neut # (Auto) (1.4-5.7) K/uL Lymph # (Auto) (0.6-2.4) K/uL [place] # (Auto) (0.0-0.8) K/uL Eos # (Auto) (0.0-0.7) K/uL Baso # (Auto) (0.0-0.1) K/uL Nucleated RBC % /100WBC Nucleated RBCs # K/uL Sodium (136-145) mmol/L Potassium (3.5-5.1) mmol/L Chloride (98-107) mmol/L Carbon Dioxide (21.0-32.0) mmol/L BUN (7.0-18.0) mg/dL Creatinine (0.6-1.0) mg/dL Est Cr Clr Drug Dosing mL/min Estimated GFR (MDRD) ml/min Glucose (74-106) mg/dL Calcium (8.5-10.1) mg/dL HCG, Quant mIU/mL Urine Color Urine Appearance Urine pH (5.0-8.0) Ur Specific [place] (1.001-1.035) Urine Protein (NEGATIVE) mg/dL Urine Glucose (UA) (NEGATIVE) mg/dL Urine Ketones (NEGATIVE) mg/dL Urine Occult Blood (NEGATIVE) Urine Nitrite (NEGATIVE) Urine Bilirubin (NEGATIVE) Urine Urobilinogen (<2.0) EU/dL Ur Leukocyte Esterase (NEGATIVE) Urine RBC (0-2/HPF) Urine WBC (0-5/HPF) Ur Epithelial Cells (NONE-FEW) Urine Bacteria (NEGATIVE) Blood Type A POSITIVE Antibody Screen NEGATIVE Med Orders - Current: Current Medications Albuterol (Proventil Neb Soln) 2.5 mg NEB ONETIME PRN PRN Reason: Wheezing Atropine Sulfate (Atropine 0.1 Mg/Ml) 0.5 mg IVPUSH ASDIRECTED PRN PRN Reason: Hypo-perfusion Atropine Sulfate (Atropine 0.1 Mg/Ml) 1 mg IVPUSH ASDIRECTED PRN PRN Reason: Hypo-Perfusion Dextrose/Water (Dextrose 50% In Water) 50 ml IVPUSH ASDIRECTED PRN PRN Reason: Hypoglycemia Epinephrine HCl (Epinephrine 1:10,000) 1 mg IVPUSH ASDIRECTED PRN PRN Reason: ACLS Guidelines Fentanyl (Sublimaze) 50 - 100 mcg IVPUSH Q5M PRN PRN Reason: Pain Last Admin: 03/02/19 14:31 Dose: 50 mcg Naloxone HCl (Narcan) 0.1 mg IVPUSH ASDIRECTED PRN PRN Reason: Respiratory Depression Discontinued Medications Acetaminophen (Tylenol) 650 mg PO NOW ONE Stop: 03/02/19 07:37 Last Admin: 03/02/19 07:44 Dose: 650 mg Ephedrine Sulfate (Ephedrine Sulfate) Confirm Administered Dose 50 mg .ROUTE .STK-MED ONE Stop: 03/02/19 13:22 Fentanyl (Sublimaze) Confirm Administered Dose 250 mcg .ROUTE .STK-MED ONE Stop: 03/02/19 12:10 Glycopyrrolate (Robinul) Confirm Administered Dose 0.4 mg .ROUTE .[facility]-MED ONE Stop: 03/02/19 12:10 Glycopyrrolate (Robinul) Confirm Administered Dose 0.2 mg .ROUTE .[facility]-MED ONE Stop: 03/02/19 13:22 Hydromorphone HCl (Dilaudid) Confirm Administered Dose 2 mg .ROUTE .[facility]-MED ONE Stop: 03/02/19 13:50 Sodium Chloride (Normal Saline) Confirm Administered Dose 20 mls @ as directed .ROUTE .[facility]-MED ONE Stop: 03/02/19 13:22 Labetalol HCl (Normodyne) Confirm Administered Dose 100 mg .ROUTE .ST-MED ONE Stop: 03/02/19 12:55 Lidocaine (Xylocaine-Mpf 2%) Confirm Administered Dose 5 ml .ROUTE .[facility]-MED ONE Stop: 03/02/19 12:10 Midazolam HCl (Versed 1 Mg/Ml) Confirm Administered Dose 2 mg .ROUTE .[facility]-MED ONE Stop: 03/02/19 12:10 Neostigmine Methylsulfate (Neostigmine) Confirm Administered Dose 5 mg .ROUTE .[facility]-MED ONE Stop: 03/02/19 12:10 Octyl Cyanoacrylate (Dermabond Advance) Confirm Administered Dose 1 applic .[address] .[facility] ONE Stop: 03/02/19 13:53 Ondansetron HCl (Zofran) Confirm Administered Dose 4 mg .ROUTE .ST-MED ONE Stop: 03/02/19 12:10 Propofol (Diprivan 20 Ml) Confirm Administered Dose 200 mg .ROUTE .[facility]-MED ONE Stop: 03/02/19 12:10 Rocuronium [place] (Zemuron) Confirm Administered Dose 100 mg .ROUTE .[facility]-MED ONE Stop: 03/02/19 12:11 - Exam General: Reports: Alert, Oriented HEENT: Reports: Pupils Equal, Pupils Reactive, EOMI, Mucous Membr. Moist/[place] Neck: Reports: Supple Lungs: Reports: Clear to Auscultation, Normal Respiratory Effort Cardiovascular: Reports: Regular Rate, Regular Rhythm GI/Abdominal Exam: Normal Bowel Sounds, Soft, Non-Tender, No Organomegaly, No Distention, No Abnormal Bruit, No Mass, Pelvis Stable (Female) Exam: Normal External Exam, Normal Speculum Exam, Normal Bimanual Exam Rectal (Female) Exam: Normal Exam, Normal Rectal Tone Back Exam: Reports: Normal Inspection, Full Range of Motion Extremities: Normal Inspection, Normal Range of Motion, Non-Tender, No Pedal Edema, Normal Capillary Refill Skin: Reports: Warm, Dry, Intact Wound/Incisions: Reports: Healing Well Neurological: Reports: No New Focal Deficit Psy/Mental Status: Reports: Alert, Normal Affect, Normal Mood
--- NOTE | 2019-03-02 15:59 | PCM48HPAN ---
Post Anesthesia Note - EVALUATION WITHIN 48HRS OF ANESTHETIC Vital Signs in Normal Range: Yes Patient Participated in Evaluation: Yes Respiratory Function Stable: Yes Airway Patent: Yes Cardiovascular Function Stable: Yes Hydration Status Stable: Yes Pain Control Satisfactory: Yes Nausea and Vomiting Control Satisfactory: Yes Mental Status Recovered: Yes Vital Signs: Last Vital Signs Temp 96.8 F 03/02/19 14:45 Pulse 72 03/02/19 15:45 Resp 14 03/02/19 15:45 BP 109/67 03/02/19 15:45 Pulse Ox 100 03/02/19 15:45
--- NOTE | 2019-03-02 19:11 | OR ---
SURGEON: All Elizabeth MD DATE OF PROCEDURE: PREOPERATIVE DIAGNOSIS: Ruptured left tubal . POSTOPERATIVE DIAGNOSIS: Ruptured left tubal . OPERATIONS PERFORMED: D and E, multiple puncture diagnostic laparoscopy, peritoneal lavage, and left salpingectomy. PRIMARY SURGEON: All Elizabeth MD. WINDOWS SYSTEMS ADMINISTRATOR: OR tech. ANESTHESIA: General endotracheal intubation, Eric Spring and Dr. Garnett. ESTIMATED BLOOD LOSS: Included with the blood in the peritoneal cavity is 250 to 300 mL. COMPLICATIONS: None. FINDING: Ruptured left tubal . INDICATIONS FOR SURGERY: She came to the emergency room complaining of abdominal pain and cramping. She was seen in our clinic yesterday with a positive test and her IUD. With the removal of the IUD, the patient was given ectopic precaution at that time. The patient came to the emergency room complaining of symptom of ectopic . She had an ultrasound, confirmed ruptured left tubal . PROCEDURE IN DETAIL: The patient was brought to the OR, properly identified. After adequate level of anesthesia, the patient was placed in lithotomy position, and prepped and draped in sterile fashion as usual. The operation was started vaginally. A single- tooth tenaculum applied to the cervix. The cervix was dilated to accommodate #8 cannula and the endometrial cavity evacuated. Content evacuated. There was scant amount of tissue and blood and no product. Then, Hulka manipulator placed in the uterus for manipulation. Then, operation shifted abdominally. Stab wound done beneath the umbilicus. The Veress needle was placed in the peritoneal cavity and that cavity insufflated with 6 L of carbon dioxide and then 5 mm trocar introduced in the peritoneal cavity beneath the umbilicus utilizing the Visiport technique. Once we were in, 10/12 trocar placed in the left iliac fossa and 5 mm trocar in the right iliac fossa and hematoperitoneum was diagnosed and then we proceeded to do peritoneal lavage to remove all the blood and blood clot from the pelvis. There was a ruptured left tubal , and we proceeded by using the Harmonic scalpel. The left tube was removed. Endo Bag was used to remove the tube once it is detached from its attachment to the uterus. Again, thorough peritoneal lavage was performed. There was no oozing, no bleeding. The right tube and ovaries normal. The left tube was removed with the tubal and the left ovary was preserved. Satisfied with these findings, the procedure ended. The instrument in the abdomen was deflated. The multiple laparoscopic incisions were closed in layer. The instrument and sponge count was correct. The patient tolerated the procedure well, went to recovery room in stable general condition. TIANA / MELE /[id number]
== END 2019-03-02 16:22 | disposition home or self-care (01) ==
LOC: MW.ED 07:11 → MW.SDS 09:40
PROVIDERS: ATTEND Obstetrics & Gynecology
DX: O00.102 Left tubal pregnancy without intrauterine pregnancy (principal); K21.9 Gastro-esophageal reflux disease without esophagitis; F31.9 Bipolar disorder, unspecified
CPT/HCPCS: 36415; 59151; 76817; 80048; 81001; 84702; 85025; 86850; 86900; 86901; A9270; J1170; J2001; J2250; J2405; J2704; J3010; J3490; 99285-25

== ENCOUNTER 2022-12-16 14:31 | Emergency (ER) | payer BC ==
[2022-12-16 15:01] LABS: BASOPHILS ABSOLUTE AUTO 0.05 K/uL (0.00-0.20); BASOPHILS PERCENT AUTO 0.5 % (0.0-1.0); EOSINOPHILS ABSOLUTE AUTO 0.08 K/uL (0.00-0.45); EOSINOPHILS PERCENT AUTO 0.8 % (0.0-6.0); HEMATOCRIT 37.1 % (37.0-47.0); HEMOGLOBIN 12.3 g/dL (12.0-16.0); IMMATURE GRAN ABSOLUTE AUTO 0.03 K/uL (0.00-0.05); IMMATURE GRAN PERCENT AUTO 0.3 % (0.0-0.4); LYMPHOCYTES ABSOLUTE AUTO 2.82 K/uL (1.00-4.80); LYMPHOCYTES PERCENT AUTO 27.9 % (24.0-44.0); MEAN CORPUSCULAR HEMOGLOBIN 25.4 pg (28.0-32.0); MEAN CORPUSCULAR HGB CONC 33.2 g/dL (32.0-36.0); MEAN CORPUSCULAR VOLUME 76.7 fL (83.0-99.0); MEAN PLATELET VOLUME 9.4 fL (9.4-12.3); MONOCYTES PERCENT AUTO 6.9 % (0.0-8.0); NEUTROPHILS ABSOLUTE AUTO 6.44 K/uL (1.80-7.70); NEUTROPHILS PERCENT AUTO 63.6 % (41.0-71.0); PLATELET COUNT,PLT 318 K/uL (150-400); RED BLOOD CELL COUNT 4.84 M/uL (4.10-5.30); WHITE BLOOD CELL COUNT,WBC 10.12 K/uL (3.9-11.3)
[2022-12-16] MEDS ORDERED: Morphine 4 MG/ML Syringe IVPUSH ONE (15:09)
[2022-12-16] MEDS ORDERED: Acetaminophen 325 MG Tab PO ONE (15:19)
[2022-12-16 15:21] LABS: APPEARANCE,URINE CLEAR; BILIRUBIN,URINE NEGATIVE (NEGATIVE); GLUCOSE,URINE NEGATIVE (NEGATIVE); KETONES,URINE 40 mg/dL (NEGATIVE); LEUKOCYTE ESTERASE,URINE NEGATIVE (NEGATIVE); NITRITE,URINE NEGATIVE (NEGATIVE); OCCULT BLOOD,URINE TRACE-INTACT (NEGATIVE); PH,URINE 5.5 (5.0-8.0); PROTEIN,URINE NEGATIVE (NEGATIVE); UROBILINOGEN,URINE 0.2 EU/dL (<2.0)
[2022-12-16 15:23] LABS: COLOR,URINE DARK YELLOW
[2022-12-16 15:39] LABS: BACTERIA,URINE FEW (NEGATIVE); EPITHELIAL CELLS,URINE FEW (NONE-FEW); RBC,URINE 0-2 (0-2/HPF); WBC,URINE 0-2 (0-5/HPF)
[2022-12-16] MEDS ORDERED: Sodium Chloride 0.9% 1,000 ML IV ONE (15:43)
[2022-12-16 15:50] LABS: A/G RATIO 0.7 (0.9-1.6); ALBUMIN 3.2 g/dL (3.4-5.0); BILIRUBIN TOTAL 0.2 mg/dL (0.2-1.0); CALCIUM 9.2 mg/dL (8.5-10.1); CARBON DIOXIDE,CO2 25.7 mmol/L (21.0-32.0); CREATININE 0.7 mg/dL (0.6-1.0); EST CRCL DRUG DOSING (CG) 87.87 mL/min; POTASSIUM,K 3.9 mmol/L (3.5-5.1); PROTEIN TOTAL,TP 8.1 g/dL (6.4-8.2)
== END 2022-12-16 17:31 | disposition home or self-care (01) ==
LOC: MW.ED 14:31
DX: R10.11 Right upper quadrant pain (principal); E66.9 Obesity, unspecified; Z68.41 Body mass index [BMI] 40.0-44.9, adult; Z91.040 Latex allergy status
CPT/HCPCS: 36415; 76705; 80053; 81001; 84702; 85025; 86900; 86901; 96360; 99284; A9270; J7030

== ENCOUNTER 2023-05-17 16:54 | Inpatient (IN) | payer BC ==
[2023-05-17] MEDS ORDERED: Sodium Chloride 0.9% 10 ML Syringe FLUSH PRN (17:31)
[2023-05-17] MEDS ORDERED: Sodium Chloride 0.9% 20 ML SDV IV PRN (17:31)
[2023-05-17] MEDS ORDERED: Sodium Chloride 0.9% 2.5 ML Syringe FLUSH PRN (17:31)
[2023-05-17] MEDS: Lactated Ringers 1,000 ML IV ONE (17:53)
[2023-05-17 18:16] LABS: HEMATOCRIT 35.6 % (37.0-47.0); HEMOGLOBIN 11.6 g/dL (12.0-16.0); MEAN CORPUSCULAR HEMOGLOBIN 24.4 pg (28.0-32.0); MEAN CORPUSCULAR HGB CONC 32.6 g/dL (32.0-36.0); MEAN CORPUSCULAR VOLUME 74.8 fL (83.0-99.0); MEAN PLATELET VOLUME 9.8 fL (9.4-12.3); PLATELET COUNT,PLT 272 K/uL (150-400); RED BLOOD CELL COUNT 4.76 M/uL (4.10-5.30); WHITE BLOOD CELL COUNT,WBC 12.22 K/uL (3.9-11.3)
[2023-05-17] MEDS ORDERED: Water For Irrigation,Sterile 1,000 ML Container IRR PRN (18:44)
[2023-05-17] MEDS ORDERED: Misoprostol 200 MCG Tab PO PRN (18:44)
[2023-05-17] MEDS ORDERED: Nalbuphine 10 MG/0.5 ML Syringe IVPUSH PRN (18:44)
[2023-05-17] MEDS ORDERED: Tranexamic Acid IN NACL,ISO-OS 1,000 MG in Premix Bag 1 BAG IV PRN (18:44)
[2023-05-17] MEDS ORDERED: Methylergonovine 0.2 MG/1 ML Amp IM PRN (18:44)
[2023-05-17] MEDS ORDERED: Carboprost Tromethamine 250 MCG/1 mL Vial IM PRN (18:44)
[2023-05-17] MEDS ORDERED: Lidocaine 1% 50 ML MDV INJECT PRN (18:44)
[2023-05-17] MEDS ORDERED: Phenylephrine HCl 0.5 MG/5 ML AMP ONE (18:50)
[2023-05-17] MEDS ORDERED: Ropivacaine HCl/PF 200 ML ONE (18:50)
[2023-05-17] MEDS ORDERED: Bupivacaine 0.5% 10 ML SDV ONE (18:50)
[2023-05-17] MEDS: Lactated Ringers 1,000 ML IV SCH (18:55)
[2023-05-17] MEDS: Ropivacaine HCl/PF 400 MG in Premix Bag 1 BAG EPIDUR SCH (19:08)
[2023-05-17] MEDS ORDERED: ePHEDrine 50 MG/ML SDV IVPUSH PRN ×2 (19:13)
[2023-05-17] MEDS: Phenylephrine HCl 0.5 MG/5 ML AMP IVPUSH PRN (19:21)
[2023-05-17] MEDS: Oxytocin/0.9 % Sodium Chloride 30 UNIT/500 ML BAG IV SCH (20:32)
[2023-05-17] MEDS ORDERED: Acetaminophen 500 MG Tab PO PRN (20:47)
[2023-05-17] MEDS ORDERED: Ibuprofen 800 MG Tab PO PRN (20:47)
[2023-05-17] MEDS ORDERED: Docusate Sodium 100 MG Cap PO PRN (20:47)
[2023-05-17] MEDS: Witch Hazel Medicated Pads 40/Jar TOP PRN (22:51)
[2023-05-17] MEDS: Benzocaine/Menthol 20%-0.5% Spray 78 GM Cannister TOP PRN (22:51)
[2023-05-17] MEDS: Lanolin 100% Cream 7 GM Tube TOP PRN (22:52)
[2023-05-18 06:45] LABS: HEMATOCRIT 32.4 % (37.0-47.0); HEMOGLOBIN 10.3 g/dL (12.0-16.0)
== END 2023-05-19 07:00 | disposition home or self-care (01) | DRG 560 ==
LOC: MW.OBCHECK 16:54 → MW.OB 16:55 → MW.OBCHECK 19:00 → OBSVTOIN 20:31 → MW.OB 05-18 01:21
PROVIDERS: ADMIT Obstetrics & Gynecology Obstetrics; ATTEND Obstetrics & Gynecology Obstetrics
PROC: 10E0XZZ Delivery of Products of Conception, External Approach (ICD-10-PCS; principal; 2023-05-17)
DX: O24.420 Gestational diabetes mellitus in childbirth, diet controlled (principal); Z3A.38 38 weeks gestation of pregnancy; Z37.0 Single live birth; O99.214 Obesity complicating childbirth; Z79.82 Long term (current) use of aspirin; Z91.040 Latex allergy status
CPT/HCPCS: 36415; 59025; 59409; 82947; 85014; 85018; 85027; 86592; 86850; 86900; 86901; A9270-GY; J0665; J2371; J2590; J2795; J7120